=== PATIENT | male | born 2000 | race Caucasian/White ===

== ENCOUNTER 2021-05-05 13:39 | Emergency (ER) | payer OTHER, BC ==
[~2021-05-05] VITALS: Ht 182.9 cm; Wt 134.7 kg
[~2021-05-05 13:39] MED LIST: FLUO20CA22 PO
[2021-05-05 14:25] VITALS: BP 156/86
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
[2021-05-05] MEDS ORDERED: DIPH,PERTUSS(ACELL),TET VAC/PF 0.5 ML SYRINGE. VAX IM ONE (15:45)
[2021-05-05] MEDS ORDERED: CYCLOBENZAPRINE 10 MG TABLET. PO ONE (15:45)
[2021-05-05] MEDS ORDERED: HYDROcodone/APAP 5/325MG 1 TAB TABLET PO ONE (15:45)
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
[2021-05-05] MEDS ORDERED: NAPR-514 PO (17:20)
[2021-05-05] MEDS ORDERED: CYCL10TA19 PO (17:20)
[2021-05-05] MEDS ORDERED: ONDANSETRON ODT 4 MG TAB.RAPDIS. ONE (17:28)
== END 2021-05-05 17:37 | disposition home or self-care (01) ==
LOC: ER 13:39
DX: S13.9XXA Sprain of joints and ligaments of unspecified parts of neck, initial encounter (principal); S50.12XA Contusion of left forearm, initial encounter; S50.11XA Contusion of right forearm, initial encounter; S80.12XA Contusion of left lower leg, initial encounter; S80.11XA Contusion of right lower leg, initial encounter; F17.200 Nicotine dependence, unspecified, uncomplicated; V49.49XA Driver injured in collision with other motor vehicles in traffic accident, initial encounter; Y93.89 Activity, other specified; Y92.488 Other paved roadways as the place of occurrence of the external cause; Y99.8 Other external cause status
CPT/HCPCS: 70450; 72125; 73070; 73090; 90471; 90715; 73590-50; 99284-25